=== PATIENT | female | born 1990 | race Hispanic/Latino ===

== ENCOUNTER 2019-08-30 18:44 | Inpatient (IN) | payer MEDICAID ==
[~2019-08-30] VITALS: Ht 156.2 cm; Wt 73.0 kg
[~2019-08-30 18:44] MED LIST: IBUP-2070 PO; PNV1TABL17 PO
[2019-08-30] MEDS ORDERED: LACTATED RINGERS 1000ML 1,000 ML IV PRN (19:16)
[2019-08-30] MEDS ORDERED: AMPICILLIN 2GM+NS 100ML 100 ML IV SCH (19:30)
[2019-08-30] MEDS ORDERED: OXYTOCIN-LR 20 UNITS/1000 ML 1,000 ML IV SCH (19:30)
[2019-08-30] MEDS ORDERED: MISOPROSTOL 25 MCG TABLET VG SCH (19:30)
[2019-08-30 20:03] LABS: APPEARANCE,URINE Clear (CLEAR); BILIRUBIN,URINE Negative (NEGATIVE); COLOR,URINE Yellow (YELLOW); GLUCOSE, URINE (UA) Negative (NEGATIVE); KETONES,URINE 15 mg/dL (NEGATIVE); LEUKOCYTE ESTERASE ,URINE Negative (NEGATIVE); NITRATE,URINE Negative (NEGATIVE); OCCULT BLOOD,URINE Negative (NEGATIVE); PROTEIN,URINE Negative (NEGATIVE); UROBILINOGEN,URINE 0.2 mg/dL (0.2-1.0)
[2019-08-30 20:29] LABS: HEMATOCRIT 35.9 % (36-48); MEAN CORPUSCULAR HEMOGLOBIN 30.2 pg (27.0-33.0); MEAN CORPUSCULAR HGB CONC 32.6 g/dL (32.0-36.0); MEAN CORPUSCULAR VOLUME 92.5 fL (79-99); PLATELET COUNT (AUTO) 206 K/uL (130-400); RED BLOOD CELL COUNT(AUTO) 3.88 MIL/uL (4.00-5.50); RED CELL DISTRIBUTION WIDTH 13.5 % (11.0-15.5); WHITE BLOOD COUNT (AUTO) 7.3 K/uL (4.8-10.8)
[2019-08-31] MEDS ORDERED: AMPICILLIN 1GM+NS 50ML 50 ML IV SCH
[2019-08-31] MEDS ORDERED: OXYTOCIN 10 USP UNITS/ML 20 UNIT in LACTATED RINGERS 1000ML 1,000 ML IV SCH ×2 (04:00→05:00)
[2019-08-31] MEDS ORDERED: PROMETHAZINE HCL 25 MG/ML 1ML AMPULE IM SCH (09:45)
[2019-08-31] MEDS ORDERED: LACTATED RINGERS 500 ML 500 ML IV PRN (09:45)
[2019-08-31] MEDS ORDERED: MEPERIDINE-PF 50 MG/ML SYG IVP SCH (09:45)
[2019-08-31] MEDS ORDERED: EPHEDRINE SULFATE 50 MG/ML AMPULE IVP PRN (09:45)
[2019-08-31] MEDS ORDERED: NALOXONE HCL 0.4 MG/1 ML ML IV PRN (09:45)
[2019-08-31] MEDS ORDERED: LIDOCAINE HCL 1% 20 ML VIAL ONE (11:35)
[2019-08-31] MEDS ORDERED: ACETAMINOPHEN-CODEINE 300/30MG TAB PO PRN (13:45)
[2019-08-31] MEDS ORDERED: LANOLIN 30GM OINTMENT TP PRN (13:45)
[2019-08-31] MEDS ORDERED: ACETAMINOPHEN 325 MG TAB PO PRN (13:45)
[2019-08-31] MEDS ORDERED: DIPH,PERTUSS(ACELL),TET VAC/PF 0.5 ML VIAL IM PRN (13:45)
[2019-08-31] MEDS ORDERED: BENZOCAINE/LANOLIN/ALOE VERA 60 ML AEROSOL TP PRN (13:45)
[2019-08-31] MEDS ORDERED: WITCH HAZEL 1 PAD TP PRN (13:45)
[2019-08-31 13:46] VITALS: BP 110/65
[2019-08-31] MEDS: IBUPROFEN 600 MG TABLET PO PRN ×2 (16:05→23:47)
[2019-08-31 16:29] VITALS: BP 118/72
[2019-08-31 19:57] VITALS: BP 113/56
[2019-08-31] MEDS: DOCUSATE SODIUM 100 MG CAP PO SCH (21:07)
[2019-08-31 23:56] VITALS: BP 103/70
[2019-09-01 03:12] VITALS: BP 98/66
[2019-09-01 06:55] LABS: HEMATOCRIT 36.7 % (36-48); MEAN CORPUSCULAR HEMOGLOBIN 29.6 pg (27.0-33.0); MEAN CORPUSCULAR HGB CONC 32.2 g/dL (32.0-36.0); MEAN CORPUSCULAR VOLUME 92.2 fL (79-99); PLATELET COUNT (AUTO) 184 K/uL (130-400); RED BLOOD CELL COUNT(AUTO) 3.98 MIL/uL (4.00-5.50); RED CELL DISTRIBUTION WIDTH 13.6 % (11.0-15.5); WHITE BLOOD COUNT (AUTO) 9.7 K/uL (4.8-10.8)
[2019-09-01 07:49] VITALS: BP 93/59
[2019-09-01] MEDS: DOCUSATE SODIUM 100 MG CAP PO SCH (09:21)
[2019-09-01] MEDS: IBUPROFEN 600 MG TABLET PO PRN (09:22)
[2019-09-01 11:37] VITALS: BP 101/67
--- NOTE | 2019-09-01 14:30 | NUR ---
DISCHARGE PT LEFT UNIT VIA WHEELCHAIR, WITH BABY IN ARMS, ACCOMPANIED BY FAMILY. DENIED PAIN AND HAD NO COMPLAINTS. BABY STRAPPED IN CAR SEAT. PT AND BABY TRANSPORTED BY PERSONAL VEHICLE.
[2019-09-02 07:13] LABS: HEPATITIS Bs ANTIGEN SCREEN P Negative (Negative)
== END 2019-09-01 14:30 | disposition home or self-care (01) | DRG 560 ==
LOC: EDH 18:44 → LDH 18:45 → EDH 18:52 → WSH 08-31 13:40
PROVIDERS: ADMIT Obstetrics & Gynecology; ATTEND Obstetrics & Gynecology
PROC: 10E0XZZ Delivery of Products of Conception, External Approach (ICD-10-PCS; principal; 2019-08-30)
PROC: 3E033VJ Introduction of Other Hormone into Peripheral Vein, Percutaneous Approach (ICD-10-PCS; 2019-08-30)
PROC: 10907ZC Drainage of Amniotic Fluid, Therapeutic from Products of Conception, Via Natural or Artificial Opening (ICD-10-PCS; 2019-08-30)
DX: O24.420 Gestational diabetes mellitus in childbirth, diet controlled (principal); Z37.0 Single live birth; K83.1 Obstruction of bile duct; O26.62 Liver and biliary tract disorders in childbirth; Z3A.36 36 weeks gestation of pregnancy
CPT/HCPCS: 36415; 81003; 82947; 85027; 86592; 86850; 86900; 86901; 87340; 90715; G0378; J2175; J2550; J2590; J7120